=== PATIENT | female | born 1970 | race Caucasian/White ===

== ENCOUNTER 2021-10-29 18:13 | Emergency (ER) | payer BC, SELFPAY ==
--- NOTE | 2021-10-29 18:23 | DI.CT.S_ITS ---
PROCEDURE: CT HEAD/BRAIN WO CON INDICATIONS: confusion TECHNIQUE: Noncontrast 4.5 mm thick angled axial sections acquired from the foramen magnum to the vertex, with coronal and sagittal reformats. For radiation dose reduction, the following was used: automated exposure control, adjustment of mA and/or kV according to patient size. COMPARISON: None. FINDINGS: Image quality: There is mild motion artifact. CSF spaces: Basal cisterns are patent. No extra-axial fluid collections. The ventricles are symmetric in size and shape. There is moderate cerebral volume loss, with resultant ventricular and sulcal prominence. Brain: No intracranial hemorrhage, mass, or mass effect. There are subcortical, periventricular and deep white matter hypodensities consistent with moderate chronic small vessel ischemic changes. The wilburn-white matter junction appears preserved. There is intracranial internal carotid artery atherosclerosis. Skull and face: Calvarium and visualized facial bones are intact, without suspicious lesions. Sinuses: Visualized sinuses and mastoids are clear. IMPRESSION: 1. No definite acute intracranial abnormality. 2. Moderate cerebral volume loss and chronic white matter small vessel ischemic changes. Dictated by: Michael Mccarthy M.D. on 10/29/2021 at 18:45 Approved by: Michael Mccarthy M.D. on 10/29/2021 at 18:49
[2021-10-29 18:26] VITALS: BP 123/56; PULSE 97; RESP 18; TEMP 36.1; O2SAT 97; BMI 28.0
[2021-10-29 18:56] VITALS: PULSE 88; O2SAT 96
[2021-10-29 19:00] VITALS: BP 128/67; PULSE 89; O2SAT 95
--- NOTE | 2021-10-29 19:01 | ED_ITS ---
HPI - Recheck/Abnormal Lab/Rx General Chief Complaint: Recheck/Abnormal Lab/Rx Stated Complaint: sent for a CT scan Time Seen by Provider: 10/29/21 18:23 Source: family Mode of arrival: Ambulatory History of Present Illness HPI narrative: Patient is a 50-year-old female who presents from [facility] ED for head CT. There CT scanner is down. Patient has early-onset dementia. She has had generalized worsening weakness. She attends adult daycare twice a week. She has been falling more. They went to her primary care doctor today who thought she may have a bladder infection but recommended they go to the ER for further workup. She was at the ER where she had blood work and other tests but for completion needed a head CT which seems very reasonable and they were sent here. She has no complaints at this time. Related Data Home Medications Medication Instructions Recorded Confirmed [ control pills] #0 12/27/16 Previous Rx's Medication Instructions Recorded cyclobenzaprine 5 mg tablet 5 mg PO BID PRN #30 tab 12/27/16 Allergies Allergy/AdvReac Type Severity Reaction Status Date / Time codeine [CODEINE] Allergy Severe Passes out Verified 10/29/21 18:26 CODEINE Allergy Unknown PASSING OUT Uncoded 01/18/18 12:31 DARVON Allergy Unknown PASSING OUT Uncoded 01/18/18 12:31 Patient History Social History Smoking Status: Never smoker Smoking Status: Never smoker Substance Use Type: does not use Exam Initial Vital Signs Initial Vital Signs: Vital Signs Temperature 97 F L 10/29/21 18:26 Pulse Rate 97 H 10/29/21 18:26 Respiratory Rate 18 10/29/21 18:26 Blood Pressure 123/56 L 10/29/21 18:26 Pulse Oximetry 97 10/29/21 18:26 GENERAL: Alert generally weak 50-year-old female HEENT: Head atraumatic,EOMI, pupils reactive, face symmetric CARDIOVASCULAR: Peripheral pulses intact no cyanosis RESPIRATORY: No respiratory distress EXTREMITIES: Normal range of motion, no clubbing or edema. Neurovascularly intact. 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 Course Orders Ordered: ED Orders 10/29/21 18:23 CT head/brain wo con Stat Vital Signs Vital signs: Vital Signs - 8 hr 10/29/21 18:26 10/29/21 18:56 10/29/21 19:00 Temperature 97 F L Pulse Rate 97 H 88 89 Respiratory Rate 18 Blood Pressure 123/56 L 128/67 Pulse Oximetry 97 96 95 [facility] - Recheck/Abnormal Lab/Rx Imaging Data CT scan - head: Radiologist's Impression: PROCEDURE:? CT HEAD/BRAIN WO CON ? INDICATIONS:? confusion ? TECHNIQUE:? Noncontrast 4.5 mm thick angled axial sections acquired from the foramen magnum to the vertex, with coronal and sagittal reformats.? For radiation dose reduction, the following was used:? automated exposure control, adjustment of mA and/or kV according to patient size.? ? COMPARISON:? None. ? FINDINGS:? Image quality:? There is mild motion artifact.? ? CSF spaces:? Basal cisterns are patent.? No extra-axial fluid collections.? The ventricles are symmetric in size and shape.? There is moderate cerebral volume loss, with resultant ventricular and sulcal prominence.? ? Brain:? No intracranial hemorrhage, mass, or mass effect.? There are subcortical, periventricular and deep white matter hypodensities consistent with moderate chronic small vessel ischemic changes.? The wilburn-white matter junction appears preserved.? There is intracranial internal carotid artery atherosclerosis.? ? Skull and face:? Calvarium and visualized facial bones are intact, without suspicious lesions.? ? Sinuses:? Visualized sinuses and mastoids are clear.? ? IMPRESSION:? ? 1. No definite acute intracranial abnormality. ? 2. Moderate cerebral volume loss and chronic white matter small vessel ischemic changes. ? ? Dictated by: Michael Mccarthy M.D. on 10/29/2021 at 18:45 ? ? [facility] Narrative Medical decision making narrative: Patient had full workup at previous ER. Head CT did a is negative. She is generally weak. Moves likely need home health and certainly further Neurology consultation. At this time no further workup indicated Discharge Plan Departure Patient Disposition: Home Clinical Impression: Dementia Instructions: Dementia Activity Restrictions/Additional Instructions: *You have been diagnosed with dementia *What to do: Unfortunately I think this may be worsening dementia. However please follow-up with neurology and her primary care provider *Continue to take medications as directed *Follow up with your primary care provider in 2-3 days or call [phone] *Return to ER if you should have increasing weakness, falls, confusion or any new, worsening or concerning symptoms Prescriptions: No Action [ control pills] Qty: 0 0RF cyclobenzaprine 5 MG tablet 5 mg PO BID PRNQty: 30 1RF
--- OUTSIDE RECORDS SUMMARY | 2021-11-02 08:08 | XMS_ITS ---
:1970 Author Organization Address [address] [place] [address] Care Team Providers Name Role Phone Javi Lawrence Primary Care Provider Reason for Visit Reason Comments Altered Mental Status Joint Swelling Constipation Dementia Encounter Details Date Type Department Care Team Description 10/29/2021 Emergency [facility] Rajiv Pate MD Altered mental status, Emergency Department [address] unspecified altered [address] mental status type [place], [place] [address] [place] (Primary Dx) [phone] [id number] (Wo rk) Allergies Active Allergy Reactions Severity Noted Date Comments Codeine Other (see comments), Low 04/28/2017 [place] immediately GI intolerance after taking, itchiness Other reaction( s): Dizziness Other reaction( s): faint Macrolide Antibiotics Nausea Only 09/23/2016 Propoxyphene Hcl 04/28/2017 Other react ion(s): Dizziness Other reaction( s): faint Troleandomycin Nausea Only Low 09/23/2016 documented as of this encounter (statuses as of 11/01/2021) Medications Medication Sig Dispensed Refills Start Date End Date Status BIOTIN ORAL Take by mouth. 0 Act volodymyr Take 1 tablet by mouth daily b complex vitamins Take 1 capsule 0 Active capsule by mouth daily sertraline (ZOLOFT) 50 Take 50 mg by 0 09/26/2020 Active mg tablet mouth 2 (two) times a day donepeziL (ARICEPT) 10 Take 1 tablet 90 tablet 3 01/21/2021 Active mg tabletIndications: by mouth every Early onset evening for Alzheimer's dementia memory. without behavioral disturbance ([facility]) memantine (NAMENDA) 10 TAKE ONE TABLET 180 tablet 3 04/30/2021 Active mg tabletIndications: BY MOUTH TWICE Dementia without DAILY behavioral disturbance, unspecified dementia type ([facility]) risperiDONE Take 2 tablets 360 tablet 3 08/17/2021 08/17/2022 Active (RisperDAL) 1 mg (2 mg total) by tabletIndications: mouth 2 (two) Early onset times a day Alzheimer's disease with behavioral disturbance ([facility]) Vitamin D2 1,250 mcg TAKE ONE 12 capsule 0 09/05/2021 Active (50,000 unit) CAPSULE BY capsuleIndications: MOUTH WEEKLY Vitamin D deficiency norethindrone-e.estrad Take 1 tablet 84 tablet 6 09/24/2021 Active ioL-iron (Arabella Fe by mouth once 10/29, ,) 1 mg-20 mcg daily (21)/75 mg (7) per tabletIndications: Encounter for surveillance of contraceptive pills documented as of this encounter (statuses as of 11/01/2021) Active Problems Problem Noted Date Pacemaker 11/04/2020 Sick sinus syndrome due to SA node dysfunction 021 Irregular periods 07/19/2019 Dizziness 04/19/2019 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 Overview: 08.25 eeg=normal Last Assessment & Plan: Interval History & Assessment: Plan: Formatting of this note might be differe nt from the original. 08.25 eeg=normal Last Assessment & Plan: Formatting of this note might be differe nt from the original. Interval History & Assessment: Plan: Chronic interstitial cystitis 03/21/2012 Overview: Overview: Patient reports she has had most of adul t life; no RX currently. Formatting of this note might be differe nt from the original. Overview: Patient reports she has had most of adul t life; no RX currently. Formatting of this note might be differe nt from the original. Patient reports she has had most of adul t life; no RX currently. FHx: coronary artery disease 03/21/2012 Overview: Overview: Paternal GM = [place] at age 41; CABG at age 83. Maternal GF = [place] at age 60; CABG/AVR at age ~ 75. Formatting of this note might be differe nt from the original. Overview: Overview: Paternal GM = [place] at age 41; CABG at age 83. Maternal GF = [place] at age 60; CABG/AVR at age ~ 75. Formatting of this note might be differe nt from the original. Paternal GM = [place] at age 41; CABG at age 83. Maternal GF = [place] at age 60; CABG/AVR at age ~ 75. Premenopausal menorrhagia 03/21/2012 Overview: Overview: D & C surgery with Novasure endometrial ablation is planned for 03/31/12 @ [facility] with Dr. Rodriguez. Vitamin D deficiency 03/07/2012 Overview: Overview: Vitamin D deficient in 2008; stopped gilberto ing D3 and calcium for ~ 2 years. Last Vit D = 11; is taking D2 again now but was instructed to then take OTC D3 in a gel capsule or liquid form for best absorption from the gut. PTH normal. Formatting of this note might be differe nt from the original. Overview: Vitamin D deficient in 2008; stopped gilberto ing D3 and calcium for ~ 2 years. Last Vit D = 11; is taking D2 again now but was instructed to then take OTC D3 in a gel capsule or liquid form for best absorption from the gut. PTH normal. Formatting of this note might be differe nt from the original. Vitamin D deficient in 2008; stopped gilberto ing D3 and calcium for ~ 2 years. Last Vit D = 11; is taking D2 again now but was instructed to then take OTC D3 in a gel capsule or liquid form for best absorption from the gut. PTH normal. 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 Overview: 11.16 mri brain=normal Formatting of this note might be differe nt from the original. 11.16 mri brain=normal documented as of this encounter (statuses as of 11/01/2021) Immunizations Name Administration Dates Next Due FLU 36+Mos Multi-dose 12/06/2018 (Flulaval,Fluzone) FLU PF 6+Mos Quad (Fluzone, FluLaval, 07/14/2021, 07/30/2020 , 07/19/2019, Fluarix) 12/06/2018, 07/16/2016 FLU PF 6-35 Mo (Fluzone 0.25 mL 06/22/2013, 08/10/2012, 1110/2010, Syringe) 08/28/2010 Influenza, Quadrivalent 07/30/2020, 07/16/2016, 07/11/2014, 06/22/2013, 08/10/2012, 08/10/2011, 08/28/2010, 08/20/2008 Influenza, Seasonal, Injectable 07/11/2014, 08/20/2008 Lualpj-CTSB-[id number]-2 Vaccine 10/19/2021, 01/10/2021 Tdap (Boostrix,Adacel) 12/06/2018, 05/10/2008 documented as of this encounter Social History Tobacco Use Types Packs/Day Years Used Date Never Smoker Smokeless Tobacco: Never Used Comments: none Alcohol Use Standard Drinks/Week Comments Yes 1 (1 standard drink = 0.6 oz pure alcoho l) 1/wk Alcohol Habits Answer Date Recorded How often do you have a drink containing alcohol? Not asked How many drinks containing alcohol do you have on a typical Not asked day when you are drinking? How often do you have six or more drinks on one occasion? No t asked Comment: 1/wk 12/06/2018 Sex Assigned at Date Recorded Not on file Job Start Date Occupation Industry Not on file Not on file Not on file COVID-19 Exposure Response Date Recorded In the last month, have you been in contact with No / Unsure 10/29/2021 2:05 PM PST someone who was confirmed or suspected to have Coronavirus / COVID-19? documented as of this encounter Last Filed Vital Signs Vital Sign Reading Time Taken Comments Blood Pressure 107/50 10/29/2021 5:02 PM PST Pulse 85 10/29/2021 5:02 PM PST Temperature 36.7 ??C (98.1 ??F) 10/29/2021 2:03 PM PST Respiratory Rate 16 10/29/2021 5:02 PM PST Oxygen Saturation 100% 10/29/2021 5:02 PM PST Inhaled Oxygen Concentration - - Weight 62.1 kg (137 lb) 10/29/2021 2:03 PM PST Height 149.9 cm (4' 11) 10/29/2021 2:03 PM PST Body Mass Index 27.67 10/29/2021 2:03 PM PST documented in this encounter Discharge Summaries Not on filedocumented in this encounter Discharge Instructions Rajiv Sheridan MD - 10/29/2021 The cause of Fely's symptoms are not completely clear. The labs were done today are normal which is reassuring. I have added on thyroid studies that your primary doctor can help follow-up on. Given that we are unable to obtain a CT scan today, I have discussed your case with Dr. Hager at the emergency department at [facility]. He is aware that you will be coming by private vehicle for a CT scan and evaluation. Please go directly there. If you are discharged from [facility], please follow-up with your primary care provider and your neurologist [facility]. Return to the emergency department for any concerns orworsening of your condition AttachmentsThe following attachments cannot be sent through Care Everywhere. Altered Mental Status (AfterCare(R) Instructions(ER/ED)) (Uzbek)documented in this encounter Medications at Time of Discharge Medication Sig Dispensed Refills Start Date End Date b complex vitamins Take 1 capsule by 0 capsule mouth daily BIOTIN ORAL Take by mouth. Take 0 1 tablet by mouth daily donepeziL (ARICEPT) 10 mg Take 1 tablet by 90 tablet 3 01/08 tabletIndications: Early mouth every evening onset Alzheimer's for memory. dementia without behavioral disturbance ([facility]) memantine (NAMENDA) 10 mg TAKE ONE TABLET BY 180 tablet 3 tabletIndications: MOUTH TWICE DAILY Dementia without behavioral disturbance, unspecified dementia type ([facility]) norethindrone-e.estradioL Take 1 tablet by 84 tablet 6 09/0909/24/2022 -iron (Arabella Fe 10/29, mouth once daily 28,) 1 mg-20 mcg (21)/75 mg (7) per tabletIndications: Encounter for surveillance of contraceptive pills risperiDONE (RisperDAL) 1 Take 2 tablets (2 360 tablet 3 05/202108/17/2022 mg tabletIndications: mg total) by mouth Early onset Alzheimer's 2 (two) times a day disease with behavioral disturbance ([facility]) sertraline (ZOLOFT) 50 mg Take 50 mg by mouth 0 1 11/27/2019 tablet 2 (two) times a day Vitamin D2 1,250 mcg TAKE ONE CAPSULE BY 12 capsule 0 2020 (50,000 unit) MOUTH WEEKLY capsuleIndications: Vitamin D deficiency documented as of this encounter ED Notes Rajiv Pate MD - 10/29/2021 3:15 PM PST EMERGENCY DEPARTMENT ENCOUNTER Patient Name: Fely Smith : 1970 Room #: [facility] 3/CH03 Visit Date: 10/29/2021 Mode of Arrival:Car Accompanied by: Spouse Primary Care Provider: LIZ Wasserman CHIEF COMPLAINT Chief Complaint Patient presents with ??? Altered Mental Status ??? Joint Swelling ??? Constipation ??? Dementia History of Present Illness: Fely Smith is a 50 y.o. female with a hx of Alzheimer's who presents to the ED sent from her PCP's office for possible urosepsis. Patient is brought in by her spouse who is her primary caregiver. The patient has had worsening mentation with significant fatigue the past few months, worse over the last week. He states he couldn't even wake her up for lunch today. Patient has been constipated withhard stools but this was relieved with Miralax. Associated symptoms include decreased urination and urinary incontinence. No fevers, nausea, vomiting, diarrhea, leg swelling, or any other symptoms. No hx of hypertension or diabetes. Patient does have a pacemaker in situ due to hx of brief cardiac arrest 3-4 years ago, states. No recent head injuries or trauma. Chief complaint: Altered mental status Duration: A few months Timing: Worsening over the last week Location: Neurological Quality: Worsening mentation Severity: Severe Modifying Factors: None stated Associated Symptoms: Fatigue, decreased urination, urinary incontinence, constipation Context: Sent by PCP for possible urosepsis; hx of Alzheimer's Primary Care Provider: LIZ Wasserman Past Medical History: Pertinent past medical, surgical, family, and social history reviewed, negative except as noted below. Allergies reviewed. Past Medical History: Diagnosis Date ??? Allergy ??? Alzheimer disease ([facility]) ??? Arrhythmia ??? Chronic eczema ??? Deaf, left ??? Deaf, left 1975 ??? Deaf, left ??? Heart failure ([facility]) Pt flatlined for 48 seconds ??? History of chicken pox Age 6 ??? Hypotensive episode ??? Memory loss ??? Visual impairment Past Surgical History: Procedure Laterality Date ??? INSERT / REPLACE / REMOVE PACEMAKER Left 09/2020 Family History Problem Relation Age of Onset ??? Hearing loss Mother ??? Kidney disease Mother ??? ADD / ADHD Brother ??? Alzheimer's disease Maternal Grandmother ??? Stroke Maternal Grandmother ??? Cancer Maternal Grandmother ??? Miscarriages / Stillbirths Maternal Grandmother ??? Alzheimer's disease Mother's Sister ??? Fainting Mother's Brother ??? Migraines Mother's Brother ??? Seizures Mother's Brother ??? Stroke Paternal Grandmother ??? Cancer Maternal Grandfather ??? Hypertension Maternal Grandfather Social History Tobacco Use ??? Smoking status: Never Smoker ??? Smokeless tobacco: Never Used ??? Tobacco comment: none Vaping Use ??? Vaping Use: Never used Substance and Sexual Activity ??? Alcohol use: Yes Alcohol/week: 1.0 standard drink Types: 1 Glasses of wine, 1 Standard drinks or equivalent per week Comment: 1/wk ??? Drug use: No ??? Sexual activity: Yes Partners: Male control/protection: Pill Comment: control pills Allergies Allergen Reactions ??? Macrolide Antibiotics Nausea Only ??? Propoxyphene Hcl Other reaction(s): Dizziness Other reaction(s): faint ??? Codeine Other (see comments) and GI intolerance Fainted immediately after taking, itchiness Other reaction(s): Dizziness Other reaction(s): faint ??? Troleandomycin Nausea Only Current Medication List Sig b complex vitamins capsule Take 1 capsule by mouth daily BIOTIN ORAL Take by mouth. Take 1 tablet by mouth daily donepeziL (ARICEPT) 10 mg tablet Take 1 tablet by mouth every evening for memory. Number of times this order has been changed since signin Order Audit [place] memantine (NAMENDA) 10 mg tablet TAKE ONE TABLET BY MOUTH TWICE DAILY Number of times this order has been changed since signin Order Audit [place] norethindrone-e.estradioL-iron (Arabella Fe ,) 1 mg-20 mcg (21)/75 mg (7) per tablet Take 1 tablet by mouth once daily Number of times this order has been changed since signin Order Audit [place] risperiDONE (RisperDAL) 1 mg tablet Take 2 tablets (2 mg total) by mouth 2 (two) times a day Number of times this order has been changed since signin Order Audit [place] sertraline (ZOLOFT) 50 mg tablet Take 50 mg by mouth 2 (two) times a day Number of times this order has been changed since signin Order Audit [place] Vitamin D2 1,250 mcg (50,000 unit) capsule TAKE ONE CAPSULE BY MOUTH WEEKLY Number of times this order has been changed since signin Order Audit [place] Review of Systems: Review of Systems Unable to perform ROS: Dementia Constitutional: Positive for fatigue. Negative for fever. Cardiovascular: Negative for leg swelling. Gastrointestinal: Positive for constipation. Negative for diarrhea, nausea and vomiting. Genitourinary: Positive for decreased urine volume. Neurological: Positive for urinary incontinence ROS provided by patient's Pipe Physical Exam: ED Triage Vitals [10/29/21 1403] Temp Heart Rate Resp BP SpO2 36.7 ??C (98.1 ??F) 86 18 97/66 96 % Temp Source Heart Rate Source Patient Position BP Location FiO2 (%) Oral Monitor Sitting Right arm -- Physical Exam Vitals and nursing note reviewed. Constitutional: General: She is not in acute distress. Appearance: She is not ill-appearing. HENT: Head: Atraumatic. Mouth/Throat: Mouth: Mucous membranes are moist. Eyes: General: No scleral icterus. Extraocular Movements: Extraocular movements intact. Conjunctiva/sclera: Conjunctivae normal. Pupils: Pupils are equal, round, and reactive to light. Cardiovascular: Rate and Rhythm: Normal rate and regular rhythm. Heart sounds: Normal heart sounds. No murmur heard. Pulmonary: Effort: Pulmonary effort is normal. No respiratory distress. Breath sounds: Normal breath sounds. Abdominal: General: Bowel sounds are normal. There is no distension. Palpations: Abdomen is soft. Tenderness: There is no abdominal tenderness. Musculoskeletal: General: No tenderness. Normal range of motion. Cervical back: Normal range of motion and neck supple. No rigidity. Right lower leg: No edema. Left lower leg: No edema. Skin: General: Skin is warm and dry. Capillary Refill: Capillary refill takes less than 2 seconds. Neurological: General: No focal deficit present. Comments: Somnolent, aroused to voice. Limited interaction. Labs: Labs Reviewed COMPREHENSIVE METABOLIC PANEL (CMP) - Abnormal Result Value Sodium, Serum/Plasma 139 Potassium, Serum/Plasma 3.9 Chloride, Serum/Plasma 100 CO2, Serum/Plasma 29 Anion Gap, Serum/Plasma 10 Urea Nitrogen, Serum/Plasma 17.0 Creatinine, Serum/Plasma 1.06 (*) Glucose, Serum/Plasma 114 (*) Calcium, Serum/Plasma 9.4 AST, Serum/Plasma 26 ALT, Serum/Plasma 16 Alkaline Phosphatase, Serum/Plasma 68 Total Protein, Serum/Plasma 7.3 eGFR, Serum/Plasma (CKD-EPI) 61 Albumin, Serum/Plasma 4.6 Bilirubin, Total, Serum/Plasma 0.5 BUN/Creatinine Ratio, Serum/Plasma 16.0 Hemolysis, Index 16 Icterus, Index <2 Turbidity Index <20 URINALYSIS, REFLEX MICROSCOPIC AND CULTURE IF INDICATED - Abnormal Color, UA Yellow Clarity, UA Clear Specific [place], UA >=1.030 pH, UA 6.0 Leukocytes, UA Negative Nitrite, UA Negative Protein, UA Trace Glucose, UA Negative Ketones, UA Trace (*) Urobilinogen, UA 0.2 (Normal) Bilirubin, UA Negative Blood/Hemoglobin, UA Negative Reflex to Urine Microscopic No Reflex to Urine Culture No Reflex to Ictotest, Urine No COMPLETE BLOOD COUNT WITH DIFF RESULT - Abnormal WBC Auto 7.8 RBC 4.81 Hemoglobin 14.2 Hematocrit 42.8 MCV 89 MCH 29.5 MCHC 33.2 RDW 12.0 (*) Platelets 184 MPV 10.6 (*) NRBC % 0 Abs. NRBC 0.0 % Neutrophils 81 % Lymphocytes 13 % Monocytes 5 % Eosinophils 0 % Basophils 1 Abs. Neutrophils 6.3 Abs. Lymphocytes 1.0 (*) Abs. Monocytes 0.4 Abs. Eosinophils 0.0 Abs. Basophils 0.0 Abs. Neutrophils (Auto) 6,300.0 COMPLETE BLOOD COUNT WITH DIFF Narrative: The following orders were created for panel order CBC with diff. Procedure Abnormality Status --------- ------ Complete blood count with...[[id number]] Abnormal Final result Please view results for these tests on the individual orders. LIPASE Lipase, Serum/Plasma 58 Hemolysis, Index 16 Icterus, Index <2 Turbidity Index <20 TROPONIN Troponin I, Serum/Plasma <0.012 Troponin T <0.010 Hemolysis, Index 16 Icterus, Index <2 Turbidity Index <20 EXTRA TUBES Narrative: The following orders were created for panel order Extra Tubes. Procedure Abnormality Status --------- ------ Hold No Top - NaFluorid...[[id number]] Final result Please view results for these tests on the individual orders. RAINBOW DRAW Narrative: The following orders were created for panel order [place] draw. Procedure Abnormality Status --------- ------ Hold Blood Culture (test ...[[id number]] In process Please view results for these tests on the individual orders. THYROID STIMULATING HORMONE, REFLEX TO FREE T4 HOLD NO TOP - NAFLUORIDE/POTASSIUM OX Extra Tube Hold for add-ons. HOLD BLOOD CULTURE (NO TEST BEING PERFORMED) Diagnostic Imaging: XR CHEST 1 VIEW (Results Pending) Meds Given this Visit: Procedure(s): Procedures EKG results from 1459 Normal sinus rhythm with a rate of 90 with artefact Normal axis Normal intervals Normal ST-T segments Overall normal ECG No previous available for comparison Reviewed and interpreted by myself contemporaneously, Rajiv Pate MD Review of records obtained in care everywhere, chart review and where available Medical Decision Making: ED Course as of Oct 29 1717 Beata Oct 29, 2021 1630 50-year-old female with history of early onset Alzheimer's brought in by her who is herprimary caregiver for months of worsening mentation. Patient is now mainly sleeping throughout mostof the day and has decreased interactions. She is urinating twice a day and is taking in the small amount of fluid per day. Eating has decreased as well. No fevers, cough, vomiting, diarrhea. She has been incontinent of urine. She was seen by PCP today who is concerned about possible urosepsis therefore referred here. On arrival she has normal vital signs and appears fatigued. Sitting in a chair, head slumped down but does lift her head, open eyes and respond to pain although she does not communicate clearly. Otherwise exam is normal. DDx includes, is not limited to: Worsening dementia, consider infectious cause such as UTI, considercardiac dysrhythmia, ACS, intracranial hemorrhage, CVA, TIA, acute renal insufficiency, dehydration,electrolyte derangement, anemia [JW] 1705 Work-up reviewed and is unremarkable without specific etiology or cause for the patient's symptoms. Urine without evidence of UTI, normal CBC, negative troponin, nonischemic EKG, mild acute renalinsufficiency otherwise normal metabolic panel. Patient rechecked, symptoms are unchanged. Given no clear etiology I did recommend a CT scan of the brain however our CT scanner is broken for at leastthe next 24 hours. I offered to transfer via ambulance [facility] and return family declines. They would prefer to go to [facility] [place] [facility]. I discussed this with Dr. Hager, ED physician who accepts patient for private vehicle transfer. At this time I will discharge the patient given that she does not require admission although this was offered to family. Her feels that he is able to take care of her at this time. I will add on a TSH and have her follow-up with PCP for this. [JW] ED Course User Index [JW] Rajiv Pate MD Progress Notes and Consults: 160 - Normal pacemaker interrogation. 1706 - Spoke with Dr. Hager, ER provider at [facility], who accepts the patient via POV. Discussed with patient and family they are comfortable with plan and declined ambulance transfer andwould prefer to go by private vehicle. Given the indolent process over the last few months I feel this is safe option for them as she has been stable here for a few hours. Discussed obtaining chest x-ray prior to discharge however she has not had a cough or any respiratory symptoms. Oxygen saturation is normal. Low suspicion for pneumonia, CHF or other acute pulmonary process. Advised continued follow-up with PCP and her neurologist and return precautions in detail. EMTALA form was filled out and sent with patient. Notes and results from work-up today were faxed over to the ED. Last Vitals: BP: 107/50 Temp: 36.7 ??C (98.1 ??F) Heart Rate: 85 Resp: 16 SpO2: 100 % Impression: 1. Altered mental status, unspecified altered mental status type Disposition: Discharge DISCHARGE MEDICATIONS New Prescriptions No medications on file FOLLOW UP LIZ Wasserman [address] [place] [id number] Schedule an appointment as soon as possible for a visit [address] [address] Go to This note was dictated in part using [facility] voice dictation software. Please note this may be the source of any grammatical or spelling errors. Scribe Attestation: Pattie Morales, am serving as scribe to document services personally performed by Rajiv Pate MD based on my observation and the provider's statements to me. Scribe: Pattie Howard, scribing for and in the presence of Rajiv Pate MD. Provider: I, Rajiv Pate MD personally performed the services described in the documentation, reviewed and edited the documentation which was dictated to the scribe in my presence, and it accurately records my words and actions. Electronically signed by: Rajiv Pate MD, ED Provider 10/29/2021 5:18 PM. Rajiv Pate MD 10/29/21 1808 Jany Moncada RN - 10/29/2021 2:00 PM PST PT arrives via WC, limited responses. Decreased mentation with increased sleeping increasing over last 2 months. BUE swelling, constipation, decreased urination. Pt with known dementia, sent by Chinyere Israel for possible urosepsis. documented in this encounter Plan of Treatment Upcoming Encounters Date Type Specialty Care Team Description 12/15/2021 Office Visit Neurology Carmenza Orta MD [address] [place] [address] (Wo rk) documented as of this encounter Implants Implanted Type Area Shelf Drier Operator Device Identifier Shelf Exp iration Model / Date Serial / L ot Lead, Tendril [id number]/46 - [id number] [employer] [id number] / Implanted: Qty: 1 on 09/19/2020 at [facility] / Pacemaker, Assurity Mri Rf Dr - [id number] [employer] [id number] / Implanted: Qty: 1 on 09/19/2020 at [facility] / Lead, Tendril Sts [id number] - [id number] [employer] [id number]/52 / Implanted: Qty: 1 on 09/19/2020 at [facility] / documented as of this encounter Procedures Procedure Name Priority Date/Time Associated Comments Diagnosis ROGERS TOP - NAFLUORIDE Routine 10/29/2021 3:10 Re sults for this PM PST procedure are i n the results section. EXTRA TUBES Routine 10/29/2021 3:10 Results for this PM PST procedure are i n the results section. HOLD BLOOD CULTURE (NO STAT 10/29/2021 3:06 R esults for this TEST BEING PERFORMED) PM PST proced ure are in the results section. COMPLETE BLOOD COUNT STAT 10/29/2021 3:06 Res ults for this WITH DIFF RESULT PM PST procedure a re in the results section. RAINBOW DRAW STAT 10/29/2021 3:06 Results for this PM PST procedure are i n the results section. COMPLETE BLOOD COUNT STAT 10/29/2021 3:06 Res ults for this WITH DIFF PM PST procedure are i n the results section. TROPONIN STAT 10/29/2021 3:06 Results for this PM PST procedure are i n the results section. LIPASE STAT 10/29/2021 3:06 Results for this PM PST procedure are i n the results section. COMPREHENSIVE STAT 10/29/2021 3:06 Results fo r this METABOLIC PANEL PM PST procedure ar e in the results section. ECG 12-LEAD STAT 10/29/2021 2:59 Results for this PM PST procedure are i n the results section. URINALYSIS, REFLEX STAT 10/29/2021 2:58 Resul ts for this MICROSCOPIC AND PM PST procedure ar e in CULTURE IF INDICATED the res ults section. documented in this encounter Results Hold No Top - NaFluoride/Potassium OX (10/29/2021 3:10 PM PST) Pathologist Sig Krikle Extra Tube Hold for [facility] add-ons.Comment: LAB Auto resulted. Specimen Blood - Venous blood (substance) Performing Organization Address [facility] LAB [address] [facility] [place] [id number] Hold Blood Culture (test not being performed) (10/29/2021 3:06 PM PST) Pathologist Sig Krikle Extra Tube Hold for [facility] add-ons.Comment: LAB Auto resulted. Specimen Blood - Venous blood (substance) Performing Organization Address [facility] [address] [facility] [address] [address] Complete blood count with diff (10/29/2021 3:06 PM PST) Pathologist Sig Krikle WBC Auto 7.8 3.8 - 10.1 [facility] x10e3/uL HOSPITAL LAB RBC 4.81 3.90 - 5.20 [facility] x10e6/uL HOSPITAL LAB Hemoglobin 14.2 12.0 - 15.6 [facility] g/dL HOSPITAL LAB Hematocrit 42.8 35.0 - 46.0 % [facility] MCV 89 81 - 100 fL [facility] MCH 29.5 27.0 - 35.0 pg [facility] MCHC 33.2 32.0 - 37.0 [facility] g/dL [facility] RDW 12.0 (L) 12.3 - 15.4 % [facility] Platelets 184 150 - 400 [place] [id number] [facility] LAB MPV 10.6 (H) 7.4 - 10.4 fL [facility] NRBC % 0 0 /100 WBCs [facility] Abs. NRBC 0.0 x10e3/uL [facility] % Neutrophils 81 % [facility] % Lymphocytes 13 % [facility] % Monocytes 5 % [facility] % Eosinophils 0 % [facility] % Basophils 1 % [facility] Abs. Neutrophils 6.3 1.6 - 6.9 [place] [id number] [facility] LAB Abs. Lymphocytes 1.0 (L) 1.1 - 4.8 [place] [id number] [facility] LAB Abs. Monocytes 0.4 0.0 - 1.[address] LAB Abs. Eosinophils 0.0 0.0 - 0.[address] LAB Abs. Basophils 0.0 0.0 - 0.4 [place] [id number] LAB Abs. Neutrophils 6,300.0 1,600.0-6,900.0 [facility] (Auto) [facility] LAB Specimen Blood - Venous blood (substance) Performing Organization Address [facility] Phon e [facility] LAB [address] [facility] A [id number] Troponin (10/29/2021 3:06 PM PST) Pathologist Sig nature Troponin I, <0.012 <0.034 ng/mL [facility] Serum/Plasma [facility] LAB Troponin T <0.010 <0.020 ug/L [facility] Hemolysis, Index 16 [facility] Icterus, Index <2 [facility] Turbidity Index <20 [facility] Specimen Blood - Venous blood (substance) Performing Organization Address [facility] Phon [facility] [address] [facility] A [id number] Lipase (10/29/2021 3:06 PM PST) Pathologist Sig nature Lipase, Serum/Plasma 58 23 - 300 U/L [facility] Hemolysis, Index 16 [facility] Icterus, Index <2 [facility] Turbidity Index <20 [facility] Specimen Blood - Venous blood (substance) Performing Organization Address City/State/ZIP Code Phon e Number [facility] [address] [facility] [place] [phone] CMP (10/29/2021 3:06 PM PST) Sodium, 139 135 - 145 [facility] Serum/Plasma mmol/L [facility] Potassium, 3.9 3.5 - 5.2 [facility] Serum/Plasma mmol/L [facility] Chloride, 100 98 - 107 [facility] Serum/Plasma mmol/L [facility] CO2, Serum/Plasma 29 22 - 30 [facility] mmol/L [facility] LAB Anion Gap, 10 3 - 11 [facility] Serum/Plasma mmol/L [facility] LAB Urea Nitrogen, 17.0 6.0 - 24.0 [facility] Serum/Plasma mg/dL [facility]OSPITAL LAB Creatinine, 1.06 (H) 0.57 - 1.00 [facility] Serum/Plasma mg/dL [facility] Glucose, 114 (H) 65 - 99 [facility] Serum/Plasma mg/dL [facility] Calcium, 9.4 8.5 - 10.1 [facility] Serum/Plasma mg/dL [facility] AST, Serum/Plasma 26 14 - 36 U/L [facility] ALT, Serum/Plasma 16 <35 U/L [facility] Alkaline 68 25 - 150 U/L [facility] Phosphatase, HOSPITAL LAB Serum/Plasma Total Protein, 7.3 6.3 - 8.2 [facility] Serum/Plasma g/dL [facility] LAB eGFR, 61 >60 [facility] Serum/Plasma (CKD-EPI) [facility] (CKD-EPI) mL/min/1.73 m2 Albumin, 4.6Comment: Albumin 3.4 - 5.0 [facility] Serum/Plasma concentrations vary g/dL [facility] LAB with posture. Results from an upright posture may be approximately 0.3 g/dL higher than those from a recumbent posture. Bilirubin, Total, 0.5 0.2 - 1.3 [facility] Serum/Plasma mg/dL [facility]ITAL LAB BUN/Creatinine 16.0 6.0 - 24.0 [facility] Serum/Plasma Hemolysis, Index 16 [facility] Icterus, Index <2 [facility] Turbidity Index <20 [facility] Specimen Blood - Venous blood (substance) Performing Organization Address City/State/ZIP Code Phon e Number [facility] [address] [facility] [place] [id number] ECG 12 lead (10/29/2021 2:59 PM PST) Pathologist Sig nature HR 90 bpm [facility] RR 664 ms [facility] [place] 131 ms [facility] QRSD 92 ms [facility] QT 360 ms [facility] QTc 442 ms [facility] QRS -20 deg [facility] T 18 deg [facility] Impression - OTHERWISE NORMAL [facility] ECG - Impression Sinus rhythm with [facility] artifacts Specimen Narrative This result has an attachment that is no t available. Performing Organization Address City/State/ZIP Code Phon e Number [facility] [address] [place] [address], Urinalysis, reflex Microscopic and Culture if indicated (10/29/2021 2:58 PM PST) Color, UA Yellow Yellow [facility] Clarity, UA Clear Clear [facility] Specific [place], UA >=1.030 1.010 - 1.030 [facility] pH, UA 6.0 5.0 - 8.0 pH [facility] Leukocytes, UA Negative Negative [facility] Nitrite, UA Negative Negative [facility] Protein, UA Trace Negative mg/dL [facility] Glucose, UA Negative Negative mg/dL [facility] Ketones, UA Trace (A) Negative mg/dL [facility] Urobilinogen, UA 0.2 (Normal) 0.2 ? [facility] 1.0 EU/dL [facility] Bilirubin, UA Negative Negative [facility] Blood/Hemoglobin, UA Negative Negative [facility] Reflex to Urine No [facility] Microscopic [facility] Reflex to Urine No [facility] Culture [facility] Reflex to Ictotest, No [facility] Urine [facility] Specimen Urine - Urine specimen obtained by clean catch procedure (specimen) Performing Organization Address City/State/ZIP Code Phon e Number [facility] [address] [facility] [place] [id number] documented in this encounter Visit Diagnoses Diagnosis Altered mental status, unspecified alter ed mental status type - Primary documented in this encounter Insurance Payer Benefit Plan / Subscriber ID Effective Phone Address [employer] Dates NOHEMI SONG [id number] 2021-Prese [phone] [address] [address] MED[employer]ARE MED[employer]V[address]AGE [address] [place] [address] [phone] (Work) documented as of this encounter Advance Directives Documents on File 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
== END 2021-10-29 19:25 | disposition home or self-care (01) ==
PROVIDERS: Emergency Provider Emergency Medicine
DX: F03.90 Unspecified dementia, unspecified severity, without behavioral disturbance, psychotic disturbance, mood disturbance, and anxiety (principal)
CPT/HCPCS: 70450; 99283

== ENCOUNTER 2021-12-12 11:45 | Emergency (ER) | payer BC, SELFPAY ==
[2021-12-12 11:48] VITALS: BP 105/54; PULSE 96; RESP 14; TEMP 36.8; O2SAT 98; BMI 28.3
--- NOTE | 2021-12-12 11:56 | DI.CT.S_ITS ---
PROCEDURE: CT HEAD/BRAIN WO CON INDICATIONS: head injury TECHNIQUE: Noncontrast 4.5 mm thick angled axial sections acquired from the foramen magnum to the vertex, with coronal and sagittal reformats. For radiation dose reduction, the following was used: automated exposure control, adjustment of mA and/or kV according to patient size. COMPARISON: [facility], CT, CT HEAD/BRAIN WO CON, 10/29/2021, 18:25. FINDINGS: Image quality: Excellent. CSF spaces: Basal cisterns are patent. No extra-axial fluid collections. Ventricles are normal in size and shape. Brain: Findings are stable. Moderate diffuse volume loss. No midline shift. No intracranial masses or hemorrhage. No-white matter interface is normal. Skull and face: Calvarium and visualized facial bones are intact, without suspicious lesions. Small subgaleal hematoma, left frontal region. Sinuses: Visualized sinuses and mastoids are clear. IMPRESSION: 1. Stable findings. Diffuse volume loss. 2. No evidence acute stroke, hemorrhage, or mass. 3. No evidence of significant intracranial sequelae of acute trauma. Dictated by: Ariel Lopez M.D. on 12/12/2021 at 11:30 Approved by: Ariel Lopez M.D. on 12/12/2021 at 11:31
--- NOTE | 2021-12-12 13:15 | ED_ITS ---
HPI - Head Injury <Brayan Fenton PA-C - Last Filed: 12/12/21 18:33> General Chief complaint: Head Injury Stated complaint: FELL HIT HEAD Time Seen by Provider: 12/12/21 11:58 Source: patient Mode of arrival: Ambulatory History of Present Illness HPI Narrative: Patient is a 51-year-old female with early onset Alzheimer's disease who presents to the emergency department today with her for an evaluation of a closed head injury. Patient's states that the patient was in the garage when she fell, he states that he went to a sister when he heard her crying out for help. He notes that the patient often stumbles over her own feet and he believes that may have been the case today that caused her fall. He denies any known loss of consciousness as a result of the fall, any explains that the patient appears to be acting appropriately. No fever, chills, chest pain, cough, shortness of breath, nausea, vomiting, diarrhea, abdominal pain, dysuria, hematuria, syncope, dizziness, behavior abnormalities, or any other concerning symptoms reported. No further concerns were voiced at this time. Related Data Home Medications Medication Instructions Recorded Confirmed [ control pills] #0 12/27/16 Previous Rx's Medication Instructions Recorded cyclobenzaprine 5 mg tablet 5 mg PO BID PRN #30 tab 12/27/16 Allergies Allergy/AdvReac Type Severity Reaction Status Date / Time codeine [CODEINE] Allergy Severe Passes out Verified 12/12/21 11:53 CODEINE Allergy Unknown PASSING OUT Uncoded 01/18/18 12:31 DARVON Allergy Unknown PASSING OUT Uncoded 01/18/18 12:31 Review of Systems <Brayan Fenton PA-C - Last Filed: 12/12/21 18:33> Constitutional Constitutional: Denies chills, Denies fatigue, Denies fever(s), Denies frequent falls, Denies lethargy and Denies weakness ENT Ears, Nose, Mouth, and Throat: Denies neck pain Cardiovascular Cardiovascular: Denies chest pain, Denies irregular heart rhythm, Denies lightheadedness, Denies palpitations, Denies dyspnea, Denies dyspnea on exertion and Denies orthopnea Respiratory Respiratory: Denies cough, Denies dyspnea, Denies dyspnea on exertion and Denies wheezing Gastrointestinal Gastrointestinal: Denies abdominal pain, Denies change in bowel habits, Denies diarrhea, Denies nausea and Denies vomiting Genitourinary Genitourinary: Denies hematuria, Denies flank pain, Denies urinary incontinence and Denies urinary urgency Musculoskeletal Musculoskeletal: Denies back pain, Denies muscle weakness, Denies neck pain, Denies numbness and Denies tingling Integumentary/Breasts Skin/Breast: Denies pruritus, Denies erythema, Denies rash, Denies wounds and Reports other (Swelling and tenderness of the forehead) Neurologic Neurologic: Denies frequent falls, Denies numbness, Denies tingling and Denies weakness Endocrine Endocrine: Denies fatigue and Denies palpitations Allergic/Immunologic Allergic/Immunologic: Denies wheezing Patient History <Brayan Fenton PA-C - Last Filed: 12/12/21 18:33> Social History Smoking Status: Never smoker Smoking Status: Never smoker Substance Use Type: does not use Exam <Brayan Fenton PA-C - Last Filed: 12/12/21 18:33> Narrative Exam Narrative: GENERAL: 51 year old patient appears stated age. Well-developed patient, in no acute distress. HEAD: Normocephalic. Approximately 2.5 x 1.25 cm oval shaped area of swelling to the left side of the forehead. No significant tenderness to palpation appreciated. No lacerations or drainage noted from the area of swelling. No excessive fluctuance or crepitance appreciated. EYES: Pupils equal round and reactive. Extraocular motions intact. No scleral icterus. No injection or drainage. ENT: Nose without bleeding, purulent drainage. Throat without erythema, tonsillar hypertrophy or exudate. Airway patent. NECK: Trachea midline. Non tender CARDIOVASCULAR: Regular rate and rhythm without murmurs, gallops, or rubs. RESPIRATORY: Clear to auscultation. Breath sounds equal bilaterally. No wheezes, rales, or rhonchi. GASTROINTESTINAL: Abdomen soft, non-tender, nondistended. EXTREMITIES: No edema or joint tenderness. BACK: Nontender without deformity or crepitance. No flank tenderness. NEURO: AOx3. SKIN: No rash or erythema of visible areas Initial Vital Signs Initial Vital Signs: Vital Signs Temperature 98.2 F 12/12/21 11:48 Pulse Rate 96 H 12/12/21 11:48 Respiratory Rate 14 12/12/21 11:48 Blood Pressure 105/54 L 12/12/21 11:48 Pulse Oximetry 98 12/12/21 11:48 <Fiona Rosado DO - Last Filed: 12/13/21 19:53> Initial Vital Signs Initial Vital Signs: Vital Signs Temperature 98.2 F 12/12/21 11:48 Pulse Rate 96 H 12/12/21 11:48 Respiratory Rate 14 12/12/21 11:48 Blood Pressure 105/54 L 12/12/21 11:48 Pulse Oximetry 98 12/12/21 11:48 Course <Brayan Fenton PA-C - Last Filed: 12/12/21 18:33> Course Course Narrative: CT scan of the head obtained. Patient ambulating in the emergency department. Orders Ordered: ED Orders 12/12/21 11:56 CT head/brain wo con Stat Vital Signs Vital signs: Vital Signs - 8 hr 12/12/21 11:48 12/12/21 13:48 Temperature 98.2 F Pulse Rate 96 H 74 Respiratory Rate 14 18 Blood Pressure 105/54 L 96/62 Pulse Oximetry 98 100 <Fiona Rosado DO - Last Filed: 12/13/21 19:53> Orders Ordered: ED Orders 12/12/21 11:56 CT head/brain wo con Stat Vital Signs Vital signs: Vital Signs - 8 hr 12/12/21 11:48 12/12/21 13:48 Temperature 98.2 F Pulse Rate 96 H 74 Respiratory Rate 14 18 Blood Pressure 105/54 L 96/62 Pulse Oximetry 98 100 MDM - Head Injury <SHANNA Galvan Last Filed: 12/12/21 18:33> Imaging Data CT scan - head: Radiologist's Impression: PROCEDURE:? CT HEAD/BRAIN WO CON ? INDICATIONS:? head injury ? TECHNIQUE:? Noncontrast 4.5 mm thick angled axial sections acquired from the foramen magnum to the vertex, with coronal and sagittal reformats.? For radiation dose reduction, the following was used:? automated exposure control, adjustment of mA and/or kV according to patient size.? ? COMPARISON:? [facility], CT, CT HEAD/BRAIN WO CON, 10/29/2021, 18:25. ? FINDINGS:? Image quality:? Excellent.? ? CSF spaces:? Basal cisterns are patent.? No extra-axial fluid collections.? Ventricles are normal in size and shape.? ? Brain:? Findings are stable.? Moderate diffuse volume loss.? No midline shift.? No intracranial masses or hemorrhage.? No-white matter interface is normal.? ? Skull and face:? Calvarium and visualized facial bones are intact, without suspicious lesions.? Small subgaleal hematoma, left frontal region. ? Sinuses:? Visualized sinuses and mastoids are clear.? ? IMPRESSION:? ? 1. Stable findings.? Diffuse volume loss. ? 2. No evidence acute stroke, hemorrhage, or mass. ? 3. No evidence of significant intracranial sequelae of acute trauma.? ? ? Dictated by: Ariel Lopez M.D. on 12/12/2021 at 11:30 ? ? Approved by: Ariel Lopez M.D. on 12/12/2021 at 11:31 ? MDM Narrative Medical decision making narrative: Differential diagnosis to consider but not limited to closed head injury versus concussion versus epidural hematoma versus subdural hematoma versus skull fracture. CT scan of the head obtained in the emergency department today did not show signs of acute abnormality. I discussed these results with the patient and her . Patient was able to ambulate in the emergency department prior to discharge. I provided strict return precautions to the patient and her prior to discharge. Patient's has been states at this time they are comfortable being discharged home the patient is stable for discharge. Discharge Plan Departure Patient Disposition: Home Clinical Impression: Closed head injury Instructions: DI for Closed Head Injury Activity Restrictions/Additional Instructions: *You have been diagnosed with closed head injury *What to do: *Please continue to take your regular medications as directed. [ ] New medication prescriptions sent to your pharmacy: [ ] [ ] New medication written as a paper prescription [X] No new medications given You were evaluated in the emergency department today for a closed head injury. CT scan of the head obtained in the emergency department today did not show signs of acute abnormality that would require emergent intervention or further workup. Please take Tylenol and ibuprofen as needed for pain. I recommend that you follow-up with the primary care provider within the next 2-3 days for further evaluation. Please do not hesitate to return to the emergency department if you experience loss of consciousness, worsening headache, behavior abnormalities, persistent vomiting, or any other concerning symptoms. *Please follow up with your primary care provider in 2-3 days, call for an appointment. Let them know you were seen in the Emergency Department and that we ask that you be seen in follow up. We will electronically transmit a record of today's note if your PCP is in our system *If you do not have a primary care provider please contact the [facility] Resource line at [phone]. They will ask some questions about your medical history and help get you set up with a doctor in the community. *Return to Emergency Department if you should have any new, worsening or concerning symptoms, such as fever greater than 101 F, shaking chills, worsening pain, persistent vomiting or other bothersome symptoms. Prescriptions: No Action [ control pills] Qty: 0 0RF cyclobenzaprine 5 MG tablet 5 mg PO BID PRNQty: 30 1RF <Fiona Rosado, DO - Last Filed: 12/13/21 19:53> Cosign ED Attending Marijaature Attestation: I was immediately available in the department for consultation. Documentation has been reviewed. Case was discussed with myself. I wrote patient was seen in evaluated independently by myself. Patient is alert but quiet, pupils are pinpoint discussed with her she does not take any narcotics regularly he is aware of. She answers questions appropriately at her normal baseline. Head CT was obtained as she has early-onset dementia and takes it difficult to fully assess her after her head injury. Head CT is negative. Patient has normal neuro exam and she is at her baseline mentation and is able to ambulate safely.
[2021-12-12 13:48] VITALS: BP 96/62; PULSE 74; RESP 18; O2SAT 100
== END 2021-12-12 13:50 | disposition home or self-care (01) ==
PROVIDERS: Emergency Provider Physician Assistant
DX: S09.90XA Unspecified injury of head, initial encounter (principal); W19.XXXA Unspecified fall, initial encounter; Y92.89 Other specified places as the place of occurrence of the external cause
CPT/HCPCS: 70450; 99283; 99284